=== PATIENT | female | born 1960 | race Hispanic/Latino ===

== ENCOUNTER 2018-02-02 11:54 | Outpatient (CLI) | payer OTHER ==
--- NOTE | 2018-02-02 13:05 | Mammography Report ---
BILATERAL DIGITAL SCREENING MAMMOGRAM WITH CAD:02/02/18 CLINICAL: Baseline screening. COMPARISON:None. FINDINGS: The breasts are mostly fatty with bilateral residual retroareolar fibroglandular densities.A left retroareolar spiculated mass at 12 o'clock 4 cm from the nipple measures 3 cm maximum. Suspicious calcifications are associated with the mass. The right breast is negative. IMPRESSION: Left breast mass requiring further workup. BI-RADS CATEGORY: 0 -- Needs Additional Imaging RECOMMENDATION: Recall for left LM and CC magnification views and left breast ultrasound. ACR BI-RADS MAMMOGRAPHIC CODES: 0 = Needs additional imaging evaluation; 1 = Negative; 2 = Benign; 3 = Probably benign; 4 = Suspicious; 5 = Malignant; 6 = Known biopsy-proven malignancy COMMENT: 1. Dense breast tissue, i.e., adenosis, fibrocystic changes, etc., may obscure an underlying neoplasm. 2. Approximately 10% of cancers are not detected with mammography. 3. A negative mammography report should not delay biopsy if a clinically suspicious mass is present.
== END 2018-02-02 11:55 | disposition home or self-care (01) ==
LOC: SPVWC 11:54
PROVIDERS: ATTEND Family Medicine
DX: Z12.31 Encounter for screening mammogram for malignant neoplasm of breast (principal)
CPT/HCPCS: 77067

== ENCOUNTER 2018-03-25 08:02 | Outpatient (CLI) | payer MEDICAID ==
--- NOTE | 2018-03-25 09:44 | Mammography Report ---
RIGHT DIGITAL DIAGNOSTIC MAMMOGRAM: 03/25/18 08:02:00 CLINICAL: For clip placement immediately status post ultrasound biopsy. COMPARISON:02/02/18 FINDINGS: A biopsy clip is now identified at 5 o'clock approximately 5 cm from the nipple. IMPRESSION: Concordant clip placement status post ultrasound biopsy. BI-RADS CATEGORY: 4A--Mildly Suspicious Pathology pending.
--- NOTE | 2018-03-25 12:17 | Ultrasound Report ---
ULTRASOUND GUIDED NEEDLE CORE BIOPSY RIGHT BREAST WITH CLIP PLACEMENT: 03/25/18 CLINICAL: Known left breast cancer and a 6 mm lesion at 5:30 o'clock 3 cm from the nipple which appears to correlate with non-Mass enhancement on the recent MRI. COMPARISON :03/21/18 ultrasound FINDINGS: The procedure was explained to the patient and informed consent was obtained. Ultrasound demonstrated the previously described lesion. I marked the breast with a felt tip marker and a time out was called. The skin was prepped with Betadine and anesthetized with 1% lidocaine. Needle core biopsy was performed through a tiny dermatotomy using ultrasound guidance, 2% lidocaine with epinephrine for deep anesthesia and a 14-gauge Achieve biopsy device. 3 cores were obtained and placed in formalin. A clip was deployed within the lesion The patient tolerated the procedure well and there were no apparent complications. Hemostasis was achieved with minimal pressure and a sterile dressing was applied. A two view mammogram demonstrated satisfactory placement of the clip. She left the department in good condition and was given instructions for wound care and followup. IMPRESSION: Uncomplicated ultrasound guided needle core biopsy with clip placement right breast.
== END 2018-03-25 08:03 | disposition home or self-care (01) ==
LOC: SPVWC 08:02
PROVIDERS: ATTEND Surgery
DX: N60.81 Other benign mammary dysplasias of right breast (principal); C50.912 Malignant neoplasm of unspecified site of left female breast; K21.9 Gastro-esophageal reflux disease without esophagitis; M19.90 Unspecified osteoarthritis, unspecified site; J45.909 Unspecified asthma, uncomplicated; Z87.442 Personal history of urinary calculi; Z87.898 Personal history of other specified conditions; Z88.6 Allergy status to analgesic agent; Z88.1 Allergy status to other antibiotic agents; Z88.5 Allergy status to narcotic agent; Z90.49 Acquired absence of other specified parts of digestive tract; Z98.890 Other specified postprocedural states; Z98.51 Tubal ligation status; Z72.89 Other problems related to lifestyle; Z86.2 Personal history of diseases of the blood and blood-forming organs and certain disorders involving the immune mechanism
CPT/HCPCS: 19083; 77065; 88305; A4648

== ENCOUNTER 2018-04-28 05:46 | Day surgery (SDC) | payer MEDICAID ==
[2018-04-28] MEDS ORDERED: LACTATED RINGERS 1,000 ML IV SCH (07:00)
[2018-04-28] MEDS ORDERED: NEURONTIN PO NR (07:19)
[2018-04-28] MEDS ORDERED: VERSED IV NR (07:19)
[2018-04-28] MEDS ORDERED: SUBLIMAZE IV SCH (07:20)
[2018-04-28] MEDS ORDERED: NEURONTIN ONE (07:29)
[2018-04-28] MEDS ORDERED: SUBLIMAZE ONE ×2 (07:29→07:34)
[2018-04-28] MEDS ORDERED: MARCAINE 0.25% INFILTRATI ONE ×2 (07:31→07:36)
[2018-04-28] MEDS ORDERED: DECADRON ONE (07:31)
[2018-04-28] MEDS ORDERED: REGLAN ONE (07:33)
[2018-04-28] MEDS ORDERED: ZOFRAN ONE (07:33)
[2018-04-28] MEDS ORDERED: XYLOCAINE MPF 2% ONE (07:33)
[2018-04-28] MEDS ORDERED: DIPRIVAN 10 MG/ML IV ONE (07:34)
[2018-04-28] MEDS ORDERED: XYLOCAINE 1% 20 mL ONE ×2 (07:36)
[2018-04-28] MEDS ORDERED: VANCOMYCIN/NS 1 GM/250 ML 1 GM/250 ML BAG IV SCH (07:48)
--- NOTE | 2018-04-28 08:15 | Operative Report ---
Operative Report Operative Report: April 28, 2018 Preoperative diagnosis: Left breast cancer of the upper outer quadrant Postoperative diagnosis: Same Procedure: Left partial mastectomy of the upper outer quadrant ultrasound guided and SLNB Surgeon: Verónica Chun MD Anesthesia: General Findings:Left clip present within radiograph specimen; x5 SLN Complications: None EBL: Minimal Disposition: PACU in good condition Indications for operative procedure: This is a 57 year old lady with newly diagnosed left breast cancer of the upper outer quadrant, Stage I [id number] ER/VA positive. Recommendations are to proceed with breast conservation. She understands the role of adjuvant radiation therapy and Oncotype DX will be obtained by medical oncology to determine if chemotherapy is recommended. She wished to proceed with the above procedure. Procedure in detail: Anesthesia placed left pectoral block. Patient was then taken to the operating room. Gen. anesthesia was administered. The left nipple was injected with radioisotope. The left breast and axilla were prepped and draped in the normal sterile operative fashion. Ultrasound was used to anne the area of incision, breast cancer mass at the 12:00 position 3-5 cm from the nipple. Timeout was performed. Gamma probe was inserted into the axilla. The area of hot spot was identified. A left axillary incision was made with a 15 blade knife with dissection taken down to the subcutaneous tissues. The axillary fascia was opened with the Bovie cautery. 5 SLNs were identified. All remaining counts were less than 10% of the highest count. Lymph node was sent to pathology for permanent processing. Hemostasis was obtained in the left axillary cavity. Axillary cavity was appropriately irrigated and suctioned. Hemostasis was noted. Axillary fascia was approximated and closed using interrupted 3-0 Vicryl and the skin brought together and closed using a running 4-0 Monocryl followed by skin affix. Attention was then taken towards the left breast. A breast incision was made with a 15 blade knife and dissection taken down to subcutaneous tissues. First began raising superior/cephalad flap with dissection take down to the pectoralis muscle, followed by raising of the inferior flap,medial flap and lateral flap with all flaps taken down to the pectoralis muscle. The breast area of concern was appropriately removed posteriorly from the pectoralis muscle with the aid of the Bovie cautery. The breast mass was not encountered. Specimen was marked and then sent to pathology and radiology; radiograph specimen with clip present within mass. Breast cavity was irrigated and hemostasis was obtained. Then proceeded with oncoplastic closure with mobilization of posterior tissues given tissue defet size of at least 7 cm. The posterior deep breast tissues were approximated and closed using interrupted 3-0 Vicryl. The subcutaneous tissues were approximated and closed using interrupted 3-0 Vicryl followed by closing of the skin with a running 4-0 Monocryl and skin affix. The patient tolerated surgery very well and she was awaken from anesthesia without any complication and transported to PACU in good condition.
--- NOTE | 2018-04-28 08:17 | Short Stay Summary ---
Short Stay Documentation Date of service: 04/28/18 - History H&P: obtained from office - Allergies and Medications Current Medications: Allergies acetaminophen [From Tylenol-Codeine] Allergy (Verified 04/26/18 16:28) Dizziness amoxicillin Allergy (Verified 04/26/18 16:28) Rash azithromycin [From Zithromax] Allergy (Verified 04/26/18 16:28) Hives codeine phosphate [From Tylenol-Codeine] Allergy (Verified 04/26/18 16:28) Dizziness Home Medications Medication Instructions Recorded Confirmed Last Taken Type No Known Home Medications [No 04/26/18 04/26/18 Unknown History Reported Home Medications] Active Medications Celecoxib (Celebrex) 200 mg PO PREOP NR Stop: 04/28/18 10:00 Fentanyl (Sublimaze) 100 mcg IV ONCE NORMA Stop: 04/28/18 10:00 Gabapentin (Neurontin) 300 mg PO PREOP NR Stop: 04/28/18 10:00 Lactated Ringer's (Lactated Ringers) 1,000 mls @ 100 mls/hr IV DIRECT NORMA Vancomycin HCl (Vancomycin/Ns 1 Gm/250 Ml) 1 gm in 250 mls @ 167.007 mls/hr IV PREOP NORMA; Protocol Stop: 04/28/18 10:00 Midazolam HCl (Versed) 2 mg IV PREOP NR Stop: 04/28/18 23:59 - Brief post op/procedure progress note Date of procedure: 04/28/18 Pre-op diagnosis: Left breast cancer of the upper outer quadrant Post-op diagnosis: same Procedure: Left partial mastectomy with SLNB Anesthesia: GETA Findings: Mass and clip present; x 5 SLNs Estimated blood loss: none Pathology: list (left partial mastectomy; SLN) Specimen disposition: to lab Condition: stable - Disposition Condition at discharge: Good Disposition: DC-01 TO HOME OR SELFCARE Short Stay Discharge Plan Activity: other (no heavy lifting) Diet: regular Wound: other (keep incision clean and dry; may shower in 48 hours; no baths, pools or lakes; do not rub or scrub incison) Follow up with: DEWEY SULLIVAN NP [Primary Care Provider] - 7 Days OVIDIO CARRINGTON MD [Staff Physician] - 7 Days Prescriptions: traMADol [Ultram 50 MG tab] 50 mg PO Q6HR PRN #30 tablet PRN Reason: Pain
[2018-04-28] MEDS ORDERED: NACL 0.9% IR ONE (08:50)
[2018-04-28] MEDS ORDERED: WATER FOR IRRIG STERILE IR ONE (08:50)
[2018-04-28] MEDS ORDERED: DILAUDID IV PRN (09:02)
--- NOTE | 2018-04-28 09:04 | Anesthesia Day of Surgery ---
Anesthesia Day of Surgery - Day of Surgery Patient Examined: Yes Patient H&P Reviewed: Yes Patient is NPO: Yes
--- NOTE | 2018-04-28 09:04 | Anesthesia Consultation ---
Anesthesia Consult and Med Hx Date of service: 04/28/18 - Airway Anesthetic Teeth Evaluation: Edentulous ROM Head & Neck: Adequate Mental/Hyoid Distance: Adequate Mallampati Class: Class III Intubation Access Assessment: Probably Good - Pulmonary Exam CTA: Yes - Cardiac Exam Cardiac Exam: RRR - Pre-Operative Health Status ASA Pre-Surgery Classification: ASA2 Proposed Anesthetic Plan: General Nerve Block: PEC - Pulmonary Hx Smoking: Yes (40 yr smoker; currently 1 pack per week) Hx Asthma: Yes (last symptoms >15yrs ago) SOB: No Home Oxygen Therapy: No Hx Sleep Apnea: No - Cardiovascular System Hx Hypertension: No Hx Heart Attack/AMI: No - Central Nervous System Hx Seizures: No CVA: No - Gastrointestinal Hx Gastroesophageal Reflux Disease: No - Endocrine Hx Renal Disease: No Hx Liver Disease: No Hx Insulin Dependent Diabetes: No Hx Thyroid Disease: No - Other Systems Hx Alcohol Use: Yes (OCCA/WINE) Hx Substance Use: No Hx Cancer: Yes (breast) - Additional Comments Anesthesia Medical History Comments: No prior anesthetic complications. Consented for preop PEC block.
[2018-04-28] MEDS ORDERED: LACTATED RINGERS 1,000 ML ONE ×2 (09:45→11:40)
--- NOTE | 2018-04-28 11:21 | Mammography Report ---
SPECIMEN RADIOGRAPH LEFT BREAST: 04/28/18 05:46:00 CLINICAL: Surgical excision of known cancer. FINDINGS: An irregular mass with calcifications and two biopsy clips are at five within the specimen. IMPRESSION: Excision of the targeted lesion .
[2018-04-28] MEDS ORDERED: ULTRAM PO PRN (12:43)
[2018-04-28 15:09] VITALS: BP 121/68
== END 2018-04-28 13:35 | disposition home or self-care (01) ==
LOC: OR 05:46
PROVIDERS: ATTEND Surgery
DX: D05.12 Intraductal carcinoma in situ of left breast (principal); K21.9 Gastro-esophageal reflux disease without esophagitis; J45.909 Unspecified asthma, uncomplicated; F17.210 Nicotine dependence, cigarettes, uncomplicated; Z88.8 Allergy status to other drugs, medicaments and biological substances; Z79.899 Other long term (current) drug therapy; Z88.1 Allergy status to other antibiotic agents; Z80.3 Family history of malignant neoplasm of breast; Z87.442 Personal history of urinary calculi; Z98.890 Other specified postprocedural states; Z90.49 Acquired absence of other specified parts of digestive tract
CPT/HCPCS: 19301; 38525; 64450; 76098; 78800; 88307; 88333; 88342; A9541; J1100; J2250; J2405; J2704; J2765; J3010; J3370; J7120

== ENCOUNTER 2018-10-25 10:16 | Outpatient (CLI) | payer MEDICAID ==
--- NOTE | 2018-10-25 11:20 | Mammography Report ---
LEFT DIGITAL DIAGNOSTIC MAMMOGRAM with CAD: 10/25/18 10:16:00 CLINICAL: History of left breast cancer status post partial mastectomy 04/28/18 with subsequent radiation therapy. COMPARISON:03/21/18 presurgical mammogram FINDINGS: The breast is heterogeneously dense, which may obscure small masses.A partially circumscribed asymmetry on the MLO view is consistent with a 2 cm seroma at the surgical site. No mass, suspicious architectural distortion or suspicious calcifications. Moderate skin thickening of the breast. IMPRESSION: Benign postsurgical changes. BI-RADS CATEGORY: 2 - - Benign RECOMMENDATION: Routine mammographic screening. ACR BI-RADS MAMMOGRAPHIC CODES: 0 = Needs additional imaging evaluation; 1 = Negative; 2 = Benign; 3 = Probably benign; 4 = Suspicious; 5 = Malignant; 6 = Known biopsy-proven malignancy COMMENT: 1. Dense breast tissue, i.e., adenosis, fibrocystic changes, etc., may obscure an underlying neoplasm. 2. Approximately 10% of cancers are not detected with mammography. 3. A negative mammography report should not delay biopsy if a clinically suspicious mass is present. COMMENT: Patient follow-up letters are generated by our [employer] application.
== END 2018-10-25 10:17 | disposition home or self-care (01) ==
LOC: SPVWC 10:16
PROVIDERS: ATTEND Surgery
DX: C50.912 Malignant neoplasm of unspecified site of left female breast (principal); K21.9 Gastro-esophageal reflux disease without esophagitis; J45.909 Unspecified asthma, uncomplicated; M19.90 Unspecified osteoarthritis, unspecified site; Z90.89 Acquired absence of other organs; Z98.890 Other specified postprocedural states; Z87.891 Personal history of nicotine dependence

== ENCOUNTER 2019-02-28 09:35 | Outpatient (CLI) | payer MEDICAID ==
--- NOTE | 2019-02-28 10:21 | Mammography Report ---
LEFT DIGITAL DIAGNOSTIC MAMMOGRAM INDICATION: Follow-up left breast cancer status post partial mastectomy and radiation therapy. TECHNIQUE: Digital mammographic imaging was performed. COMPARISON: 03/21/2018 FINDINGS: Breast Density: The breasts are heterogeneously dense, which may obscure small masses. There is no evidence of dominant mass, suspicious calcifications or suspicious architectural distorti on in the left breast. Upper outer benign postsurgical scar. Moderate skin thickening of the breast. IMPRESSION: No mammographic evidence of malignancy. Recommend routine mammographic screening. BI-RADS Category 2: Benign. A "normal" or negative report should not discourage follow up or biopsy of a clinically significant f inding. A written summary of these findings will be mailed to the patient. The patient will be entered into a mammography reporting system which will generate a reminder letter for the patient's next appointmen t at the appropriate interval. FURTHER INFORMATION: According to the [employer], yearly mammograms are recommend ed starting at age 40 and continuing as long as a woman is in good health. Breast MRI is recommended for women with an approximately 20-25% or greater lifetime risk of breast cancer, including women wi th a strong family history of breast or ovarian cancer and women who have been treated for Hodgkin's disease. Signer Name: Melecio Smith MD Signed: 02/28/2019 10:17 AM Workstation Name: [id number]
--- NOTE | 2019-02-28 11:49 | Mammography Report ---
RIGHT BREAST DIAGNOSTIC MAMMOGRAM HISTORY: Status post right benign needle biopsy. COMPARISON: 03/25/2018 FINDINGS: Breast Density: scattered fibroglandular appearance of the breast tissue. Digital CC and MLO views of the right breast demonstrate no mammographic evidence of malignancy. Lemuel preciado inner biopsy clip IMPRESSION No mammographic evidence of malignancy. If the clinical examination remains stable, recommend bilateral screening mammogram in approximately one year. BIRADS 2: Benign According to the [employer], yearly mammograms are recommended starting at age 40 and continuing as long as a woman is in good health. Clinical Breast Exams should be part of a period ic health exam-about every 3 years for women in their 20s and 30s and every year for women 40 and ove r. Breast self exam is an option for women starting in their 20s. Any breast change noted on a breast self exam should be reported promptly to the patient's healthcare provider. Breast MRI is recommende d for women with an approximately 20-25% or greater lifetime risk of breast cancer, including women w ith a strong family history of breast or ovarian cancer and women who have been treated for Hodgkin's disease. A negative Mammography report should not discourage follow up or biopsy of a clinically significant f inding and/or abnormality. Dense breast tissue may obscure small neoplasms. Signer Name: Melecio Smith MD Signed: 02/28/2019 11:44 AM Workstation Name: [id number]
== END 2019-02-28 09:36 | disposition home or self-care (01) ==
LOC: SPVWC 09:35
PROVIDERS: ATTEND Surgery
DX: R92.8 Other abnormal and inconclusive findings on diagnostic imaging of breast (principal); K21.9 Gastro-esophageal reflux disease without esophagitis; J45.909 Unspecified asthma, uncomplicated; Z85.3 Personal history of malignant neoplasm of breast; Z90.89 Acquired absence of other organs

== ENCOUNTER 2019-02-28 13:06 | Outpatient (CLI) | payer MEDICAID ==
--- NOTE | 2019-02-28 14:39 | Vascular Lab Report ---
Duplex venous Doppler examination of the left upper extremity with spectral analysis INDICATION: Left upper extremity edema and pain, history of left breast cancer Through most of the deep venous system and examined superficial venous system of the left upper extre mity veins are compressible and show flow and augmentation and I do not see evidence of deep venous t hrombosis. However, the left brachial vein in the distal left arm is trifurcated and one of these seg ments shows occlusive thrombosis with lack of flow seen and lack of compressibility. The other 2 comp onents of the left brachial vein show no evidence of DVT. IMPRESSION: A brachial segment shows occlusive deep venous thrombosis as described above. Preliminary report was called by the technologist at time of service to the patient's physician office and rayshawn nt is being referred for treatment. Signer Name: Jason Boo MD Signed: 02/28/2019 2:35 PM Workstation Name: [id number]
== END 2019-02-28 13:07 | disposition home or self-care (01) ==
LOC: VAS 13:06
PROVIDERS: ATTEND Surgery
DX: I82.622 Acute embolism and thrombosis of deep veins of left upper extremity (principal); K21.9 Gastro-esophageal reflux disease without esophagitis; J45.909 Unspecified asthma, uncomplicated; Z90.89 Acquired absence of other organs

== ENCOUNTER 2019-09-06 10:59 | Outpatient (CLI) | payer MEDICAID ==
--- NOTE | 2019-09-06 11:59 | Mammography Report ---
DIGITAL DIAGNOSTIC MAMMOGRAM, 09/06/2019 INDICATION: Status post left breast lumpectomy. TECHNIQUE: Digital left mammographic imaging was performed. COMPARISON: 02/28/2019, 10/25/2018, 04/28/2018, 03/25/2018, 02/11/2018. FINDINGS: Breast Density: There are scattered areas of fibroglandular density. Stable area of architectural distortion and skin retraction in the left upper outer posterior breast. This represents the site of prior lumpectomy. No new suspicious findings are identified within the l eft breast. No visualized abnormal left axillary lymph nodes. CAD was utilized. IMPRESSION: Stable mammographic appearance of the left breast following lumpectomy. No evidence of malignancy. Pa tient will be due for annual bilateral mammogram in 6 months. BI-RADS Category 2: Benign. Recommend routine screening mammography in one year A "normal" or negative report should not discourage follow up or biopsy of a clinically significant f inding. A written summary of these findings will be mailed to the patient. The patient will be entered into a mammography reporting system which will generate a reminder letter for the patient's next appointmen t at the appropriate interval. According to the [employer], yearly mammograms are recommended starting at age 40 and continuing as long as a woman is in good health. Breast MRI is recommended for women with an shalonda roximately 20-25% or greater lifetime risk of breast cancer, including women with a strong family his tory of breast or ovarian cancer and women who have been treated for Hodgkin's disease. Signer Name: Naren Joshi MD Signed: 09/06/2019 11:55 AM Workstation Name: [id number]
== END 2019-09-06 11:00 | disposition home or self-care (01) ==
LOC: SPVWC 10:59
PROVIDERS: ATTEND Surgery
DX: C50.912 Malignant neoplasm of unspecified site of left female breast (principal); Z98.890 Other specified postprocedural states; R92.2 Inconclusive mammogram

== ENCOUNTER 2019-10-17 11:43 | Outpatient (CLI) | payer MEDICAID | END 2019-10-17 11:44 | disposition home or self-care (01) | LOC: XRAY 11:43 | PROVIDERS: ATTEND Internal Medicine Hematology | DX: C50.919 Malignant neoplasm of unspecified site of unspecified female breast (principal); R05 Cough; J44.9 Chronic obstructive pulmonary disease, unspecified | CPT/HCPCS: 71046 ==

== ENCOUNTER 2020-03-12 09:54 | Outpatient (CLI) | payer MEDICAID ==
--- NOTE | 2020-03-12 12:07 | Mammography Report ---
DIGITAL SCREENING MAMMOGRAM WITH CAD, 03/12/2020 INDICATION: Routine screening mammography. The patient has a personal history of left breast cancer t reated with lumpectomy. The patient also has a history of recent chest CT performed at [place] which identified a possible soft tissue mass in the left breast adjacent to the pectoralis muscle. TECHNIQUE: Digital bilateral 2D mammography was obtained in the craniocaudal and mediolateral obliq ue projections. This examination was interpreted with the benefit of Computer-Aided Detection analysi s. COMPARISON: Left diagnostic mammogram, 09/06/2019. Diagnostic mammogram, 02/28/2019 and 10/25/2018 FINDINGS: Breast Density: There are scattered areas of fibroglandular density. There is no evidence of dominant mass, suspicious calcifications or architectural distortion in the r ight breast. Evaluation of the left breast again demonstrates post lumpectomy changes which appear grossly stable when compared to previous mammograms. IMPRESSION: Follow up recommendation: Routine yearly. No mammographic abnormality of either breast. The recent CT of the chest performed at an outside facility identified a possible soft tissue mass in the left melissa ast which could be related to post therapy changes. I do not have this CT available for direct review . No significant mammographic abnormality is identified. However, a breast MRI could be helpful to co nfirm that there is no significant abnormality in the left breast or on the left chest wall. BI-RADS Category 2: Benign. A "normal" or negative report should not discourage follow up or biopsy of a clinically significant f inding. A written summary of these findings will be mailed to the patient. The patient will be entered into a mammography reporting system which will generate a reminder letter for the patient's next appointmen t at the appropriate interval. The [employer] recommends yearly mammograms starting at age 40 and continuing as l romulo as a woman is in good health. Breast MRI is recommended for women with an approximate 20-25% or greater lifetime risk of breast cancer, including women with a strong family history of breast or ova yesika cancer or who have been treated for Hodgkin's disease. Signer Name: Inez Luna MD Signed: 03/12/2020 12:03 PM Workstation Name: [id number]
== END 2020-03-12 09:55 | disposition home or self-care (01) ==
LOC: SPVWC 09:54
PROVIDERS: ATTEND Surgery
DX: Z12.31 Encounter for screening mammogram for malignant neoplasm of breast (principal)
CPT/HCPCS: 77067

== ENCOUNTER 2020-04-10 09:02 | Outpatient (CLI) | payer MEDICAID ==
--- NOTE | 2020-04-10 15:33 | Magnetic Resonance Report ---
Bilateral breast MRI with and without contrast. History: PERSONAL HX OF BREAST CA/ ABNORMAL MAMMO with left lumpectomy in 2018, recent outside CT sh owing asymmetric soft tissue density in the posterior left breast and chest wall area Procedure: Axial T1 and T2-weighted fat-sat images were obtained precontrast. 13 cc MultiHance was i njected intravenously and serial axial T1-weighted images with fat saturation were obtained postcontr ast. 3-D MIP projections, Kinetic analysis and subtraction imaging was utilized to evaluate. A [employer] 8 channel breast coil was utilized for image acquisition. Comparison: Bilateral mammogram 03/12/2020 Findings: Background level of enhancement is minimal. No suspicious axillary or clavicular nodes are identified. No abnormal bone marrow signal is seen. No significant chest wall enhancement is noted. Right breast: No suspicious lesions are seen. Left breast: Surgical changes are noted. This includes scarring extending to the chest wall. I do not see significant enhancement in this area. No suspicious lesions are seen. Impression: No suspicious lesions are seen. Surgical changes with scarring on the left. BIRADS: 2: Benign Signer Name: Jason Boo MD Signed: 04/10/2020 3:28 PM Workstation Name: [id number]
== END 2020-04-10 09:03 | disposition home or self-care (01) ==
LOC: SPVIMAG 09:02
PROVIDERS: ATTEND Surgery
DX: R92.8 Other abnormal and inconclusive findings on diagnostic imaging of breast (principal); Z85.3 Personal history of malignant neoplasm of breast
CPT/HCPCS: A9577; C8908; 77049

== ENCOUNTER 2021-03-14 09:53 | Outpatient (CLI) | payer MEDICAID ==
--- NOTE | 2021-03-17 08:23 | Mammography Report ---
DIGITAL SCREENING MAMMOGRAM WITH CAD, 03/14/2021 CLINICAL INFORMATION / INDICATION: Routine screening mammography. The patient has a personal history of left breast cancer treated with lumpectomy. TECHNIQUE: Digital bilateral 2D mammography was obtained in the craniocaudal and mediolateral obliqu e projections. This examination was interpreted with the benefit of Computer-Aided Detection analysis . COMPARISON: 03/12/2020, 09/06/2019, 03/25/2018 FINDINGS: Breast Density: There are scattered areas of fibroglandular density. No dominant mass, suspicious calcifications, or architectural distortion in either breast. Stable post lumpectomy findings are again noted in the left breast. IMPRESSION: No mammographic evidence of malignancy. Follow up recommendation: Routine yearly BI-RADS Category 2: Benign. A "normal" or negative report should not discourage follow up or biopsy of a clinically significant f inding. A written summary of these findings will be mailed to the patient. The patient will be entered into a mammography reporting system which will generate a reminder letter for the patient's next appointmen t at the appropriate interval. The [employer] recommends yearly mammograms starting at age 40 and continuing as l romulo as a woman is in good health. Breast MRI is recommended for women with an approximate 20-25% or greater lifetime risk of breast cancer, including women with a strong family history of breast or ova yesika cancer or who have been treated for Hodgkin's disease. Signer Name: Inez Luna MD Signed: 03/17/2021 8:19 AM Workstation Name: [id number]
== END 2021-03-14 09:54 | disposition home or self-care (01) ==
LOC: SPVWC 09:53
PROVIDERS: ATTEND Surgery
DX: Z12.31 Encounter for screening mammogram for malignant neoplasm of breast (principal)
CPT/HCPCS: 77063; 77067

== ENCOUNTER 2022-03-31 13:18 | Outpatient (CLI) | payer MEDICAID ==
--- NOTE | 2022-04-02 17:43 | Mammography Report ---
DIGITAL SCREENING MAMMOGRAM WITH CAD, 03/31/2022 CLINICAL INFORMATION / INDICATION: Routine screening mammography. TECHNIQUE: Digital bilateral 2D mammography was obtained in the craniocaudal and mediolateral obliqu e projections. This examination was interpreted with the benefit of Computer-Aided Detection analysis . COMPARISON: 03/14/2021, 03/12/2020 FINDINGS: Breast Density: There are scattered areas of fibroglandular density. No dominant mass, suspicious calcifications, or architectural distortion in either breast. A biopsy clip is again seen in the lower inner right breast. Left lumpectomy and radiation changes moran ve not significantly changed. IMPRESSION: No mammographic evidence of malignancy. Follow up recommendation: Routine yearly screening mammogram. - The ACR recommends yearly screening MRI in patients with a personal history of breast cancer who moran ve dense fibroglandular tissue as well in patients who were diagnosed with breast cancer under the ag e of 50. BI-RADS Category 2: BENIGN. A "normal" or negative report should not discourage follow up or biopsy of a clinically significant f inding. A written summary of these findings will be mailed to the patient. The patient will be entered into a mammography reporting system which will generate a reminder letter for the patient's next appointmen t at the appropriate interval. The [employer] recommends yearly mammograms starting at age 40 and continuing as l romulo as a woman is in good health. Breast MRI is recommended for women with an approximate 20-25% or greater lifetime risk of breast cancer, including women with a strong family history of breast or ova yesika cancer or who have been treated for Hodgkin's disease. Signer Name: Nico Smith MD Signed: 04/02/2022 5:39 PM Workstation Name: [id number]
== END 2022-03-31 13:19 | disposition home or self-care (01) ==
LOC: SPVWC 13:18
PROVIDERS: ATTEND Internal Medicine Hematology
DX: Z12.31 Encounter for screening mammogram for malignant neoplasm of breast (principal)
CPT/HCPCS: 77067